=== PATIENT | female | born 1985 | race Caucasian/White ===

== ENCOUNTER 2021-12-22 01:50 | Emergency (ER) | payer MEDICAID ==
[~2021-12-22] VITALS: Ht 170.2 cm; Wt 84.4 kg
[2021-12-22 01:58] VITALS: BP 126/81
--- NOTE | 2021-12-22 01:59 | NUR ---
PT AMBULATED TO BED #11
--- NOTE | 2021-12-22 02:06 | NUR ---
RESEARCH ATTORNEY AT BEDSIDE
--- NOTE | 2021-12-22 02:10 | NUR ---
36 Y/O FEMALE BIBS FROM HOME, CP X1 HR. 9/10 SUB STERNAL, NON RADIATING, "THROBBING" PAIN. DENIES N/V, DIZZINESS, SOB, COUGH, OR FEVER. +CHILLS. SKIN IS PINK/WARM/DRY. A/OX4, UNLABORED BREATHING, SPEAKING IN FULL SENTENCES; AMBULATORY W/O ASSISTANCE. DENIES PMH/RX NKA
--- NOTE | 2021-12-22 02:14 | NUR ---
XRAY AT BEDSIDE
[2021-12-22] MEDS: IBUPROFEN 400 MG TAB PO ONE (02:18)
[2021-12-22] MEDS: NITROGLYCERIN 0.4 MG TAB SL ONE (02:18)
[2021-12-22] MEDS: ASPIRIN 325 MG TAB PO ONE (02:18)
[2021-12-22 02:21] LABS: BASOPHILS # (AUTO) 0.1 K/uL (0.00-0.22); BASOPHILS % (AUTO) 0.9 % (0.0-2.0); EOSINOPHILS # (AUTO) 0.2 K/uL (0-0.4); EOSINOPHILS % (AUTO) 2.6 % (0.0-4.0); HEMOGLOBIN 14.3 g/dL (12.0-16.0); LYMPHOCYTES # (AUTO) 3.2 K/uL (2.5-16.5); LYMPHOCYTES % (AUTO) 39.9 % (20.5-51.1); MEAN CORPUSCULAR HEMOGLOBIN 28 pg (27-31); MEAN CORPUSCULAR HGB CONC 33 g/dL (33-37); MEAN CORPUSCULAR VOLUME 84.7 fL (80-94); MONOCYTES # (AUTO) 0.6 K/uL (0.8-1.0); MONOCYTES % (AUTO) 7.2 % (1.7-9.3); NEUTROPHILS % (AUTO) 49.4 % (42.2-75.2); PLATELET COUNT (AUTO) 275 K/uL (140-450); RED BLOOD CELL COUNT(AUTO) 5.07 MIL/uL (4.20-5.40); RED CELL DISTRIBUTION WIDTH 13.8 % (11.6-13.7)
[2021-12-22 02:32] LABS: ANION GAP 12.7 (8-16); CHLORIDE 107 mmol/L (98-107); CREATININE 0.7 mg/dL (0.6-1.3); GFR ARICAN-AMERICAN 121 mL/min (>90); GLUCOSE 97 mg/dL (74-106); POTASSIUM 3.7 mmol/L (3.5-5.1); SODIUM SERUM 142 mmol/L (136-145); UREA NITROGEN, BLOOD 13 mg/dL (7-18)
[2021-12-22 02:40] LABS: ALBUMIN 3.5 g/dL (3.4-5.0); ASPARTATE AMINOTRANSFERASE 10 U/L (15-37); TOTAL BILIRUBIN 0.3 mg/dL (0.0-1.0)
[2021-12-22 03:44] VITALS: BP 122/76
--- NOTE | 2021-12-22 03:48 | NUR ---
Patient discharged with v/s stable. Written and verbal after care instructions given and explained. Patient verbalized understanding. Ambulatory with steady gait. All questions addressed prior to discharge. Advised to follow up with PMD. vss, a/ox4, unlabored breathing, ambulatory, and calm demeanor.
== END 2021-12-22 03:48 | disposition home or self-care (01) ==
LOC: MED 01:50
DX: R07.2 Precordial pain (principal); Z79.899 Other long term (current) drug therapy
CPT/HCPCS: 36415; 71045; 80053; 84484; 85025; 93005; 99285; Q0092

== ENCOUNTER 2022-07-31 11:36 | Emergency (ER) | payer MEDICAID ==
[~2022-07-31] VITALS: Ht 160 cm; Wt 70.3 kg
[2022-07-31 11:47] VITALS: BP 142/79
--- NOTE | 2022-07-31 11:49 | NUR ---
PT AMBULATED TO ER BED 7
--- NOTE | 2022-07-31 12:19 | NUR ---
DR CASEY AT BEDSIDE EVALUATING PT
[2022-07-31] MEDS ORDERED: MECLIZINE 25 MG TAB PO ONE ×2 (12:30→13:35)
[2022-07-31] MEDS ORDERED: LORazepam 0.5 MG TAB PO ONE (12:30)
[2022-07-31] MEDS ORDERED: ONDANSETRON 4 MG ODT PO ONE (12:30)
--- NOTE | 2022-07-31 12:40 | NUR ---
36YO FEMALE PT C/O DIZZINESS AND HEADACHE XYESTERDAY. WORSENING SYMPTOMS +NAUSEA WHEN LAYING DOWN. REPORTS SUDDEN ONSET. DENIES V/D, CHEST PAIN OR SOB. PT AAOX4, AMB W/ STEADY GAIT. HX:DENIES NKA
[2022-07-31] MEDS ORDERED: ACETAMINOPHEN EXTRA STRENGTH 500 MG TAB PO ONE (13:20)
[2022-07-31] MEDS ORDERED: KETOROLAC 30 MG/ML VIAL IM ONE (13:35)
[2022-07-31] MEDS ORDERED: MECL-303 PO (14:14)
[2022-07-31] MEDS ORDERED: ONDA-188 PO (14:14)
--- NOTE | 2022-07-31 14:26 | NUR ---
Patient discharged with v/s stable. Written and verbal after care instructions FOR [employer] given and explained. Patient alert, oriented and verbalized understanding of instructions. Ambulatory with steady gait. All questions addressed prior to discharge. ID band removed. Patient advised to follow up with PMD. Rx of ANTIVERT AND ZOFRAN given. Opportunity to ask questions provided and answered.
== END 2022-07-31 14:26 | disposition home or self-care (01) ==
LOC: MED 11:36
DX: H81.11 Benign paroxysmal vertigo, right ear (principal)
CPT/HCPCS: 81025; 96372; 99284; J1885; J8597; Q0162

== ENCOUNTER 2024-01-05 19:10 | Emergency (ER) | payer MEDICAID ==
[~2024-01-05] VITALS: Ht 167.6 cm; Wt 86.6 kg
[~2024-01-05 19:10] MED LIST: MECL-303 PO; ONDA-188 PO
[2024-01-05 19:27] VITALS: BP 138/85; PULSE 71; RESP 18; TEMP 97.7; O2SAT 98
[2024-01-05] MEDS ORDERED: ACET500T99 PO (21:38)
[2024-01-05] MEDS: ACETAMINOPHEN EXTRA STRENGTH 500 MG TAB PO ONE (22:10)
== END 2024-01-05 22:11 | disposition home or self-care (01) ==
LOC: MED 19:10
DX: S09.90XA Unspecified injury of head, initial encounter (principal); Z79.899 Other long term (current) drug therapy; W11.XXXA Fall on and from ladder, initial encounter; Y93.89 Activity, other specified; Y92.89 Other specified places as the place of occurrence of the external cause; Y99.8 Other external cause status
CPT/HCPCS: 70450; 73130; 99284